=== PATIENT | male | born 1990 | race American Indian/Alaskan Native ===

== ENCOUNTER 2017-06-15 10:28 | Emergency (ER) | payer OTHER ==
[~2017-06-15] VITALS: Ht 180.3 cm; Wt 81.7 kg
== END 2017-06-15 11:15 | disposition home or self-care (01) ==
LOC: ED 10:28
DX: S39.011A Strain of muscle, fascia and tendon of abdomen, initial encounter (principal); Y93.89 Activity, other specified; Y92.69 Other specified industrial and construction area as the place of occurrence of the external cause; Z88.0 Allergy status to penicillin; X50.1XXA Overexertion from prolonged static or awkward postures, initial encounter
CPT/HCPCS: 99282